=== PATIENT | female | born 1985 | race African-American/Black ===

== ENCOUNTER 2018-08-04 05:59 | Emergency (ER) | payer OTHER ==
[~2018-08-04] VITALS: Ht 167.6 cm; Wt 63.0 kg
[2018-08-04] MEDS ORDERED: CEPHALEXIN500 MG ORAL (06:55)
[2018-08-04] MEDS ORDERED: IBUPROFEN600 MG ORAL (06:55)
[2018-08-04 07:01] VITALS: BP 112/71
[2018-08-04 07:16] VITALS: BP 124/64
--- NOTE | 2018-08-04 07:50 | Emergency Room Report ---
History of Present Illness General Chief Complaint: Pain Source: Patient Present Illness HPI Patient's a 32-year-old female who presented after increased right-sided breast pain. Patient reports having onset of symptoms 5 days ago. Patient reports having the currently been on her menses. She reports being a marijuana smoker. She denies any . She states she has prior history of fibroid uterus. She's not currently taking any medications for hormones. She had no prior history of mammography abnormality. The patient denies any fever or recent trauma. Allergies: Coded Allergies: No Known Allergies (Unverified , 08/04/18) Patient History Past Medical History: see triage record Last Menstrual Period: ongoing Now: No Reviewed Nursing Documentation: PMH: Agreed; PSxH: Agreed Nursing Documentation-PMH Past Medical History: No Stated History Hx Neurological Problems: Yes - fibroid Review of Systems All Other Systems: negative except mentioned in HPI Physical Exam Vital Signs Date Time Temp Pulse Resp B/P (MAP) Pulse Ox O2 Delivery O2 Flow Rate FiO2 08/04/18 06:12 98.2 80 16 110/72 95 Room Air General Appearance: well appearing, no apparent distress, alert, GCS 15 Head: normocephalic, atraumatic ENT: hearing grossly normal, normal voice Neck: full range of motion, supple Respiratory: no respiratory distress, speaking full sentences Musculoskeletal: no calf tenderness Neurologic: normal gait Psychiatric: mood/affect normal Skin: no rash, other - right breast tenderness to nipple without discharge or kristina abscess Medical Decision Making Diagnostic Impression: Primary Impression: Breast tenderness in female ER Course Patient 32-year-old female presented for breast pain. Differential diagnosis included was not limited to mastitis, breast cyst, breast cancer, abscess among others. Patient has a benign exam and does not appear to require any imaging or laboratory testing at this time. The patient appears to have some nipple tenderness there is no evidence of abscess at this time. The patient was given prescription for Keflex however patient was advised to have mammography as well as breast ultrasound to evaluate for possible carcinoma The patient is advised follow-up with her primary care physician for further evaluation and treatment. Labs Test 08/04/18 06:30 Urine HCG, Qualitative Negative (NEGATIVE) Last Vital Signs Date Time Temp Pulse Resp B/P (MAP) Pulse Ox O2 Delivery O2 Flow Rate FiO2 08/04/18 07:16 98.0 86 18 124/64 96 Room Air Status: improved Disposition: HOME, SELF-CARE Condition: Stable Scripts Ibuprofen* (MOTRIN*) 600 Mg Tablet 600 MG ORAL Q8H PRN for For Pain, #30 TAB 0 Refills Prov: Venkatesh Dos Santos MD 08/04/18 Cephalexin* (KEFLEX*) 500 Mg Capsule 500 MG ORAL EVERY 6 HOURS, #28 CAP Prov: Venkatesh Dos Santos MD 08/04/18 Patient Instructions: Breast Tenderness Venkatesh Dos Santos MD Aug 04, 2018 07:50
== END 2018-08-04 07:22 | disposition home or self-care (01) ==
LOC: EMR 06:43
DX: N64.4 Mastodynia (principal); F12.90 Cannabis use, unspecified, uncomplicated
CPT/HCPCS: 81025; 99283

== ENCOUNTER 2018-10-01 10:26 | Emergency (ER) | payer OTHER ==
[~2018-10-01] VITALS: Ht 167.6 cm; Wt 69.4 kg
[~2018-10-01 10:26] MED LIST: CEPHALEXIN500 MG ORAL; IBUPROFEN600 MG ORAL
[2018-10-01] MEDS ORDERED: ELIQUIS5 MG PO (10:40)
--- NOTE | 2018-10-01 10:40 | NUR ---
ED Nurse Note: PT CAME TO ED FROM HOME C/O OF CHEST PAIN PER PT "ITS BAREABLE BUT ITS 02/25". PER PT SHE IS TAKING ELIQUIS. PER PT PAIN STARTED 2 DAYS AGO. PT IS AOX 4 . WILL CONTINUE TO MONITOR AND AWAIT NEW ORDERS
[2018-10-01] MEDS ORDERED: Sodium Chloride 500ML 500 ML IV ONE (10:50)
[2018-10-01] MEDS ORDERED: Isovue-370 150ml vial INJ PRN (11:00)
--- NOTE | 2018-10-01 11:00 | NUR ---
ED Nurse Note: ULTRASOUND AT BEDSIDE
[2018-10-01 11:06] VITALS: BP 104/61
--- NOTE | 2018-10-01 11:38 | Emergency Room Report ---
History of Present Illness General Chief Complaint: Chest Pain Source: Patient Present Illness HPI 32-year-old female presents ED for evaluation. Patient complaining of chest pain 2 days. Midsternal, sharp, 6 out of 10, nonradiating. Notes some shortness of breath. States that she was discharged from [facility] on 09/17 with diagnoses of PE. Patient is on Eliquis. States that she is compliant with her medication. Denies any leg swelling. Denies cough. Denies fevers or chills. Denies drug use. No other aggravating relieving factors. Denies any other associated symptoms Allergies: Coded Allergies: No Known Allergies (Unverified , 10/01/18) Patient History Past Medical History: other - PE/DVT Past Surgical History: none Pertinent Family History: none Social History: Denies: smoking, alcohol use, drug use Last Menstrual Period: Sep 2018 Now: No Immunizations: UTD Reviewed Nursing Documentation: PMH: Agreed; PSxH: Agreed Nursing Documentation-PMH Past Medical History: No History, Except For Hx Neurological Problems: Yes - fibroid Review of Systems All Other Systems: negative except mentioned in HPI Physical Exam Vital Signs Date Time Temp Pulse Resp B/P (MAP) Pulse Ox O2 Delivery O2 Flow Rate FiO2 10/01/18 10:34 98.2 83 16 104/61 98 Room Air Sp02 EP Interpretation: reviewed, normal General Appearance: no apparent distress, alert, GCS 15, non-toxic Head: normocephalic, atraumatic Eyes: bilateral eye normal inspection, bilateral eye PERRL ENT: hearing grossly normal, normal pharynx, no angioedema, normal voice Neck: full range of motion, supple/symm/no masses Respiratory: chest non-tender, lungs clear, normal breath sounds, speaking full sentences Cardiovascular #1: regular rate, rhythm, no edema Cardiovascular #2: 2+ carotid (R), 2+ carotid (L), 2+ radial (R), 2+ radial (L) , 2+ dorsalis pedis (R), 2+ dorsalis pedis (L) Gastrointestinal: normal bowel sounds, non tender, soft, non-distended, no guarding, no rebound Rectal: deferred Genitourinary: normal inspection, no CVA tenderness Musculoskeletal: back normal, gait/station normal, normal range of motion, non- tender Neurologic: alert, oriented x3, responsive, motor strength/tone normal, sensory intact, speech normal Psychiatric: judgement/insight normal, memory normal, mood/affect normal, no suicidal/homicidal ideation Reflexes: 3+ bicep (R), 3+ bicep (L), 3+ tricep (R), 3+ tricep (L), 3+ knee (R) , 3+ knee (L) Skin: normal color, no rash, warm/dry, well hydrated Lymphatic: no adenopathy Medical Decision Making Diagnostic Impression: Primary Impression: DVT (deep venous thrombosis) Qualified Codes: I82.403 - Acute embolism and thrombosis of unspecified deep veins of lower extremity, bilateral Additional Impression: Chest pain Qualified Codes: R07.9 - Chest pain, unspecified ER Course Hospital Course 32 yo F presents to ED c/o bilateral leg pain, chest pain. h/o PE and DVT Differential diagnoses include: VA/unstable angina, PE, bronchitis, asthma Clinical course Patient placed on stretcher. on cafeteria monitor. After initial history and physical I ordered labs, EKG, chest x-ray, CTA chest, venous duplex labs reviewed- no leukocytosis, hemoglobin/hematocrit stable, electrolytes ok, troponins negative EKG - NSR, no acute ischemic changes interpreted bym e Chest x-ray- unremarkable venous duplex - bilateral acute DVT Patient had difficult IV access. I placed peripheral EJ line CTA chest - no evidence of PE Concerning because patient developed DVT while on Eliquis. patient maintains compliance Lovenox given. Because of insurance patient will be transferred I. I feel this is a highly complex case requiring extensive working including EKG/Rhythm strip, Xray/CT/US, Blood/urine lab work, repeat exams while in ED, and administration of strong opiates/narcotics for pain control, admission to hospital or close patient follow up. Diagnosis - DVT, chest pain Transferred in serious condition Labs Test 10/01/18 11:50 10/01/18 12:10 Prothrombin Time 11.3 SEC (9.30-11.50) Prothromb Time International Ratio 1.1 (0.9-1.1) Activated Partial Thromboplast Time 21 SEC (23-33) Urine Color Yellow Urine Appearance Clear Urine pH 7 (4.5-8.0) Urine Specific [place] 1.010 (1.005-1.035) Urine Protein Negative (NEGATIVE) Urine Glucose (UA) Negative (NEGATIVE) Urine Ketones Negative (NEGATIVE) Urine Blood Negative (NEGATIVE) Urine Nitrite Negative (NEGATIVE) Urine Bilirubin Negative (NEGATIVE) Urine Urobilinogen 1 MG/DL (0.0-1.0) Urine Leukocyte Esterase 1+ (NEGATIVE) Urine RBC 0-2 /HPF (0 - 2) Urine WBC 0-2 /HPF (0 - 2) Urine Squamous Epithelial Cells Moderate /LPF (NONE/OCC) Urine Bacteria Few /HPF (NONE) Urine HCG, Qualitative Negative (NEGATIVE) Sodium Level 141 MMOL/L (136-145) Potassium Level 4.3 MMOL/L (3.5-5.1) Chloride Level 109 MMOL/L (98-107) Carbon Dioxide Level 25 MMOL/L (21-32) Anion Gap 7 mmol/L (5-15) Blood Urea Nitrogen 9 mg/dL (7-18) Creatinine 0.7 MG/DL (0.55-1.30) Estimat Glomerular Filtration Rate > 60 mL/min (>60) Glucose Level 76 MG/DL (74-106) Calcium Level 8.2 MG/DL (8.5-10.1) Total Bilirubin 0.5 MG/DL (0.2-1.0) Aspartate Amino Transf (AST/SGOT) 31 U/L (15-37) Alanine Aminotransferase (ALT/SGPT) 22 U/L (12-78) Alkaline Phosphatase 60 U/L (46-116) Total Creatine Kinase 387 U/L (26-308) Creatine Kinase MB 0.7 NG/ML (0.0-3.6) Creatine Kinase MB Relative Index 0.1 Troponin I 0.017 ng/mL (0.000-0.056) Pro-B-Type Natriuretic Peptide 8 pg/mL (0-125) Total Protein 7.2 G/DL (6.4-8.2) Albumin 3.3 G/DL (3.4-5.0) Globulin 3.9 g/dL Albumin/Globulin Ratio 0.8 (1.0-2.7) Urine Opiates Screen Negative (NEGATIVE) Urine Barbiturates Screen Negative (NEGATIVE) Phencyclidine (PCP) Screen Negative (NEGATIVE) Urine Amphetamines Screen Negative (NEGATIVE) Urine Benzodiazepines Screen Negative (NEGATIVE) Urine Cocaine Screen Negative (NEGATIVE) Urine Marijuana (THC) Screen Positive (NEGATIVE) White Blood Count 4.9 K/UL (4.8-10.8) Red Blood Count 4.35 M/UL (4.20-5.40) Hemoglobin 12.7 G/DL (12.0-16.0) Hematocrit 38.3 % (37.0-47.0) Mean Corpuscular Volume 88 FL (80-99) Mean Corpuscular Hemoglobin 29.3 PG (27.0-31.0) Mean Corpuscular Hemoglobin Concent 33.3 G/DL (32.0-36.0) Red Cell Distribution Width 12.7 % (11.6-14.8) Platelet Count 359 K/UL (150-450) Mean Platelet Volume 6.7 FL (6.5-10.1) Neutrophils (%) (Auto) 46.0 % (45.0-75.0) Lymphocytes (%) (Auto) 37.8 % (20.0-45.0) Monocytes (%) (Auto) 12.1 % (1.0-10.0) Eosinophils (%) (Auto) 3.4 % (0.0-3.0) Basophils (%) (Auto) 0.8 % (0.0-2.0) EKG Diagnostic Results Rate: normal Rhythm: NSR ST Segments: no acute changes ASA given to the pt in ED: No Rhythm Strip Diag. Results EP Interpretation: yes Rhythm: NSR, no PVC's, no ectopy Chest X-Ray Diagnostic Results Chest X-Ray Diagnostic Results : Chest X-Ray Ordered: Yes # of Views/Limited/Complete: 1 View Indication: Chest Pain EP Interpretation: Yes Interpretation: no consolidation, no effusion, no pneumothorax, no acute cardiopulmonary disease Impression: No acute disease Electronically Signed by: Electronically signed by Isaak Esquivel MD CT/MRI/US Diagnostic Results CT/MRI/US Diagnostic Results #1: Imaging Test Ordered: Venous DUplex Impression bilateral acute DVT CT/MRI/US Diagnostic Results #2: Imaging Test Ordered: CTA chest Impression no evidence of PE Last Vital Signs Date Time Temp Pulse Resp B/P (MAP) Pulse Ox O2 Delivery O2 Flow Rate FiO2 10/01/18 11:06 83 16 Room Air 10/01/18 11:06 98.2 104/61 98 Status: improved Disposition: XFER SHT-TRM HOSP Condition: Serious Referrals: NON PHYSICIAN (PCP) Isaak Esquivel MD Oct 01, 2018 11:38
[2018-10-01 12:04] LABS: APPEARANCE,URINE CLEAR; BILIRUBIN, URINE NEGATIVE (NEGATIVE); GLUCOSE, URINE (UA) NEGATIVE (NEGATIVE); KETONES,URINE NEGATIVE (NEGATIVE); LEUKOCYTE ESTERASE ,URINE 1+ (NEGATIVE); NITRITE,URINE NEGATIVE (NEGATIVE); PH,URINE 7 (4.5-8.0); PROTEIN,URINE NEGATIVE (NEGATIVE); UROBILINOGEN,URINE 1 MG/DL (0.0-1.0)
[2018-10-01 12:08] LABS: COLOR,URINE YELLOW
[2018-10-01 12:15] LABS: ANION GAP 7 mmol/L (5-15); BLOOD UREA NITROGEN 9 mg/dL (7-18); CALCIUM 8.2 MG/DL (8.5-10.1); CARBON DIOXIDE 25 MMOL/L (21-32); CHLORIDE 109 MMOL/L (98-107); CREATININE 0.7 MG/DL (0.55-1.30); POTASSIUM 4.3 MMOL/L (3.5-5.1); SODIUM 141 MMOL/L (136-145)
[2018-10-01 12:19] LABS: INR 1.1 (0.9-1.1)
[2018-10-01 12:27] LABS: BASOPHILS % (AUTO) 0.8 % (0.0-2.0); EOSINOPHILS % (AUTO) 3.4 % (0.0-3.0); HEMATOCRIT 38.3 % (37.0-47.0); HEMOGLOBIN 12.7 G/DL (12.0-16.0); LYMPHOCYTES % (AUTO) 37.8 % (20.0-45.0); MEAN CORPUSCULAR VOLUME 88 FL (80-99); MONOCYTES % (AUTO) 12.1 % (1.0-10.0); PLATELET COUNT 359 K/UL (150-450); RED BLOOD COUNT 4.35 M/UL (4.20-5.40); RED CELL DISTRIBUTION WIDTH 12.7 % (11.6-14.8); WHITE BLOOD COUNT 4.9 K/UL (4.8-10.8)
[2018-10-01 12:29] LABS: ALBUMIN 3.3 G/DL (3.4-5.0); ALBUMIN/GLOBULIN RATIO 0.8 (1.0-2.7); ALKALINE PHOSPHATASE 60 U/L (46-116); ASPARTATE AMINO TRANSFERASE 31 U/L (15-37); BILIRUBIN,TOTAL 0.5 MG/DL (0.2-1.0); CKMB 0.7 NG/ML (0.0-3.6); CREATINE KINASE 387 U/L (26-308)
[2018-10-01 12:42] LABS: ALANINE AMINOTRANSFERASE 22 U/L (12-78)
--- NOTE | 2018-10-01 12:54 | Diagnostic Imaging Report ---
Indication: Dyspnea Comparison: None A single view chest radiograph was obtained. Findings: Cardiomediastinal appearance is within normal limits for age. The lungs are clear. Pulmonary vascularity is appropriate. The diaphragmatic contour is smooth and costophrenic angles are sharp. No pleural effusions are identified. The bones are unremarkable. Impression: No acute findings
--- NOTE | 2018-10-01 12:57 | Diagnostic Imaging Report ---
Indication:Leg pain and swelling Technique: Grayscale and duplex Doppler imaging of the veins in both lower extremities performed in real time utilizing compression and augmentation. Comparison: None Findings: Duplex Doppler interrogation of the veins in both lower extremity is performed from the common femoral vein to the popliteal vein. Examination shows evidence of bilateral DVT worse on the left leg. There is left superficial femoral to popliteal vein thrombosis. On the right side there is thrombosis of the popliteal vein. Relative lack of respiratory phasicity noted throughout the patent veins in the left leg. Poor augmentation demonstrated. IMPRESSION: Bilateral acute DVT
--- NOTE | 2018-10-01 13:02 | NUR ---
ED Nurse Note: pt tolerates right ext. jug. iv site insertion by dr rojas and pt to ct scan
[2018-10-01] MEDS ORDERED: Enoxaparin 80mg Inj SUBQ ONE (13:15)
--- NOTE | 2018-10-01 13:46 | Diagnostic Imaging Report ---
Indication: Chest pain Technique: Continuous helical transaxial imaging of the chest was obtained from the thoracic inlet to the upper abdomen during rapid intravenous contrast administration. Arterial phase of enhancement obtained. Coronal 2-D reformats were also obtained and maximum intensity projection images in multiple planes. Study obtained in a Siemens sensation [address] Automatic Exposure Control was utilized. Total Dose length Product (DLP): 692.[address] Dose Index Volume (CTDIvol): 17.23,16.03 mGy Comparison: None Findings: The pulmonary artery is well opacified and shows no filling defects. There is no adenopathy, pleural or pericardial effusions are identified. There is no aortic dissection or aneurysm identified within the chest. The lungs are clear. Visualized part of the upper abdomen is unremarkable. Impression: Negative CTA of the chest. Note the posterior basilar most aspects of the lung bases are not included in the [id number] on this examination. The CT scanner at [facility] is accredited by the [employer] and the scans are performed using dose optimization techniques as appropriate to a performed exam including Automatic Exposure control.
[2018-10-01 14:28] VITALS: BP 101/65
--- NOTE | 2018-10-01 14:28 | NUR ---
ED Nurse Note: PT WAS TRANSFERRED TO [facility]. REPORT GIVEN TO SARAH SAPP RECEIVING NURSE AND SWAPNIL WELCH, EMT. PT VSS AT THE MOMENT, AOX 4, PT HAS NO SIGN OF DISTRESS. ALL BELONGINGS GIVEN TO .
--- NOTE | 2018-10-02 17:20 | Cardiology Report ---
APPROVED REPORT EKG Measurement Heart [id number] Normal sinus rhythm Normal ECG
== END 2018-10-01 14:28 | disposition short-term general hospital (02) ==
LOC: EMR 10:59
DX: I82.403 Acute embolism and thrombosis of unspecified deep veins of lower extremity, bilateral (principal); Z86.711 Personal history of pulmonary embolism
CPT/HCPCS: 36415; 71045; 71275; 80053; 80307; 81003; 81025; 82550; 82553; 83880; 84484; 85025; 85610; 85730; 93005; 93970; 96372; 99285; J1650; Q9967

== ENCOUNTER 2019-09-09 05:27 | Emergency (ER) | payer OTHER ==
[~2019-09-09] VITALS: Ht 167.6 cm; Wt 67.6 kg
[~2019-09-09 05:27] MED LIST changes: +ELIQUIS5 MG PO
--- NOTE | 2019-09-09 05:52 | NUR ---
ED Nurse Note: Pt amblated to ED from home c/o vaginal bleeding post coitus, denies pain. Pt states she is 5 weeks , hx of fibroids and blood clots in legs. VSS. Pt is A&Ox4
[2019-09-09 05:54] VITALS: BP 115/72
--- NOTE | 2019-09-09 05:56 | Emergency Room Report ---
History of Present Illness General Chief Complaint: Female Urogenital Problems Source: Patient Present Illness HPI This is a 33-year-old female who is 4 para 2 A1 and approximately 5 weeks by date. She presents with chief complaint of vaginal spotting. This occurred tonight after intercourse. No pain. She does have a history of DVT and pulmonary embolism. She is taking Eliquis. No fever chills. No nausea no vomiting. Nothing made it better. Not made it worse. No other complaint. Allergies: Coded Allergies: No Known Allergies (Unverified , 10/01/18) Patient History Past Medical History: see triage record, old chart reviewed Past Surgical History: other Pertinent Family History: none Social History: Denies: smoking Now: Yes Immunizations: other Reviewed Nursing Documentation: PMH: Agreed; PSxH: Agreed Nursing Documentation-PMH Past Medical History: No History, Except For Hx Neurological Problems: Yes - fibroid Review of Systems Eye: Denies: eye pain, blurred vision ENT: Denies: ear pain, nose congestion, throat swelling Respiratory: Denies: cough, shortness of breath Cardiovascular: Denies: chest pain, palpitations Gastrointestinal: Denies: abdominal pain, diarrhea, nausea, vomiting Genitourinary: Reports: vag bleed/dc Musculoskeletal: Denies: back pain, joint pain Skin: Denies: rash Neurological: Denies: headache, numbness Endocrine: Denies: increased thirst, increased urine Hematologic/Lymphatic: Denies: easy bruising All Other Systems: negative except mentioned in HPI Physical Exam Vital Signs Date Time Temp Pulse Resp B/P (MAP) Pulse Ox O2 Delivery O2 Flow Rate FiO2 09/09/19 05:44 98.4 93 14 115/72 (86) 99 Room Air Vitals normal Sp02 EP Interpretation: reviewed, normal General Appearance: well appearing, no apparent distress, alert Head: normocephalic, atraumatic Eyes: bilateral eye PERRL, bilateral eye EOMI ENT: hearing grossly normal, normal pharynx Neck: full range of motion, supple, no meningismus Respiratory: chest non-tender, lungs clear, normal breath sounds Cardiovascular #1: regular rate, rhythm, no murmur Gastrointestinal: normal bowel sounds, non tender, no mass, no organomegaly, no bruit, non-distended Musculoskeletal: back normal, normal range of motion, gait/station normal Psychiatric: mood/affect normal Medical Decision Making Diagnostic Impression: Primary Impression: Threatened in first trimester Additional Impression: UTI (urinary tract infection) Qualified Codes: N30.00 - Acute cystitis without hematuria ER Course Patient presents with vaginal bleeding in first trimester. There is most likely an early threatened miscarriage. Will get ultrasound to rule out ectopic. I will sign this patient out to Dr. Esquivel for final disposition. CT/MRI/US Diagnostic Results CT/MRI/US Diagnostic Results : Imaging Test Ordered: Pelvic ultrasound Impression Read by radiologist. Tiny gestational sac. Cannot rule out ectopic. Last Vital Signs Date Time Temp Pulse Resp B/P (MAP) Pulse Ox O2 Delivery O2 Flow Rate FiO2 09/09/19 05:44 98.4 93 14 115/72 (86) 99 Room Air Status: improved Disposition: HOME, SELF-CARE Condition: Stable Scripts Cephalexin* (KEFLEX*) 500 Mg Capsule 500 MG ORAL EVERY 6 HOURS for 7 Days, #28 CAP Prov: Isaak Esquivel MD 09/09/19 Patient Instructions: Urinary Tract Infection Tay Florez MD Sep 09, 2019 05:56
[2019-09-09 06:19] LABS: BILIRUBIN, URINE NEGATIVE (NEGATIVE); GLUCOSE, URINE (UA) NEGATIVE (NEGATIVE); KETONES,URINE 1+ (NEGATIVE); LEUKOCYTE ESTERASE ,URINE 1+ (NEGATIVE); NITRITE,URINE NEGATIVE (NEGATIVE); PH,URINE 5 (4.5-8.0); PROTEIN,URINE 3+ (NEGATIVE); UROBILINOGEN,URINE 1 MG/DL (0.0-1.0)
[2019-09-09 06:23] LABS: APPEARANCE,URINE SLIGHTLY CLOUDY; COLOR,URINE YELLOW
[2019-09-09] MEDS ORDERED: cefTRIAXone 1 GM in NS 55 ML IVPB ONE (06:30)
[2019-09-09 06:40] LABS: EOSINOPHILS % (AUTO) 1.1 % (0.0-3.0); HEMATOCRIT 39.9 % (37.0-47.0); HEMOGLOBIN 12.6 G/DL (12.0-16.0); LYMPHOCYTES % (AUTO) 22.9 % (20.0-45.0); MEAN CORPUSCULAR VOLUME 81 FL (80-99); MONOCYTES % (AUTO) 9.6 % (1.0-10.0); NEUTROPHILS % (AUTO) 65.3 % (45.0-75.0); PLATELET COUNT 367 K/UL (150-450); RED BLOOD COUNT 4.93 M/UL (4.20-5.40); RED CELL DISTRIBUTION WIDTH 15.8 % (11.6-14.8)
[2019-09-09 07:01] LABS: ANION GAP 10 mmol/L (5-15); BLOOD UREA NITROGEN 9 mg/dL (7-18); CALCIUM 9.5 MG/DL (8.5-10.1); CARBON DIOXIDE 26 MMOL/L (21-32); CHLORIDE 102 MMOL/L (98-107); CREATININE 0.8 MG/DL (0.55-1.30); POTASSIUM 3.8 MMOL/L (3.5-5.1); SODIUM 138 MMOL/L (136-145)
--- NOTE | 2019-09-09 07:05 | NUR ---
HAND-OFF: Report given to benito MALIK.
[2019-09-09] MEDS ORDERED: CEPHALEXIN500 MG ORAL (07:31)
--- NOTE | 2019-09-09 07:40 | NUR ---
ER DISCHARGE NOTE: Patient is cleared to be discharged per ERMD, pt is aox4, on room air, with stable vital signs. pt was given dc and prescription instructions, pt was able to verbalize understanding, pt id band and iv site removed without complications. pt is able to ambulate with steady gait. pt took all belongings.
[2019-09-09 07:43] VITALS: BP 115/72
--- NOTE | 2019-09-09 12:02 | Diagnostic Imaging Report ---
Indication: . Pelvic pain Technique: Grayscale and duplex Doppler imaging of the pelvis performed utilizing a transabdominal scan and endovaginal scan. Comparison: None Findings: Examination shows a small cystic structure in the central part of the uterus. These structures too small to date and could be an early intrauterine . However other possibilities including a pseudogestational sac are not excluded. The structure measures approximately 8.9 mm. There are multiple uterine fibroids of varying sizes the largest of which is about 4 cm in the fundus. The ovaries appear normal. Right ovary is 2.4 x 1.8 x 1.6 cm. Left ovary 4.3 x 4.4 x 3.1 cm. IMPRESSION: Tiny gestational sac versus nonpregnancy related cystic structure in the central uterus. Follow-up and correlation with serial quantitative beta hCG recommended. Ectopic is not excluded.
== END 2019-09-09 07:45 | disposition home or self-care (01) ==
LOC: EMR 05:37
DX: O20.0 Threatened abortion (principal); Z3A.01 Less than 8 weeks gestation of pregnancy; N30.00 Acute cystitis without hematuria; O23.41 Unspecified infection of urinary tract in pregnancy, first trimester; Z86.711 Personal history of pulmonary embolism; Z86.718 Personal history of other venous thrombosis and embolism
CPT/HCPCS: 36415; 76815; 80048; 81001; 84702; 85025; 86850; 86900; 86901; 87086; 96365; J0696; Z7502; 99284

== ENCOUNTER 2019-11-24 22:40 | Emergency (ER) | payer OTHER ==
[~2019-11-24] VITALS: Ht 167.6 cm; Wt 69.9 kg
--- NOTE | 2019-11-24 22:54 | NUR ---
ED Nurse Note: pt ambulated into ed from home CO constant lower abdominal pain since yesterday that is similar to contractions. Pt states this is her 4th and previous resulted in early . Pt denies any bleeding or spotting, fever, n/v/d. Pt states that she is 4 mo . VSS, pt restless, aao x 4, steady gait. Awaiting ERMD at bedside
--- NOTE | 2019-11-24 23:05 | NUR ---
ED Nurse Note: ERMD at bedside for inital exam and US
[2019-11-24] MEDS ORDERED: HYDROcodone/Acetamin 5/325 tab ORAL ONE (23:15)
--- NOTE | 2019-11-24 23:15 | Emergency Room Report ---
History of Present Illness General Chief Complaint: Complications Source: Patient Present Illness HPI This a 33-year-old female who is 4, para 2, A1. She is approximately 16 weeks . She is a high risk because she has a history of DVT and currently taking Lovenox. She presents with chief complaint of abdominal pain. Onset yesterday. Pain is to the suprapubic and left lower quadrant area. Pain is sharp in nature. No bleeding. She saw her UNDERWRITING SUPPORT SPECIALIST weekly for this high risk . She is B+ blood type. She also had 2 large fibroids. One is at the fundus and the other one is the left lower quadrant. Pain is sharp. 8 out of 10. Worse with palpation and movement. Better with rest. No urinary complaint. No vaginal bleeding. Allergies: Coded Allergies: No Known Allergies (Unverified , 10/01/18) Patient History Past Medical History: see triage record, old chart reviewed Past Surgical History: other Pertinent Family History: none Social History: Denies: smoking Now: Yes : 4 Para: 2 Immunizations: other Reviewed Nursing Documentation: PMH: Agreed; PSxH: Agreed Nursing Documentation-PMH Hx Neurological Problems: Yes - fibroid Review of Systems Eye: Denies: eye pain, blurred vision ENT: Denies: ear pain, nose congestion, throat swelling Respiratory: Denies: cough, shortness of breath Cardiovascular: Denies: chest pain, palpitations Gastrointestinal: Denies: abdominal pain, diarrhea, nausea, vomiting Musculoskeletal: Denies: back pain, joint pain Skin: Denies: rash Neurological: Denies: headache, numbness Endocrine: Denies: increased thirst, increased urine Hematologic/Lymphatic: Denies: easy bruising All Other Systems: negative except mentioned in HPI Physical Exam Vital Signs Date Time Temp Pulse Resp B/P (MAP) Pulse Ox O2 Delivery O2 Flow Rate FiO2 11/24/19 22:44 97.9 98 18 108/75 (86) 98 Room Air Vitals normal Sp02 EP Interpretation: reviewed, normal General Appearance: well appearing, no apparent distress, alert Head: normocephalic, atraumatic Eyes: bilateral eye PERRL, bilateral eye EOMI ENT: hearing grossly normal, normal pharynx Neck: full range of motion, supple, no meningismus Respiratory: chest non-tender, lungs clear, normal breath sounds Cardiovascular #1: regular rate, rhythm, no murmur Gastrointestinal: normal bowel sounds, no mass, no organomegaly, no bruit, non- distended, tenderness - Tenderness to the left lower quadrant. Patient is gravid with fundus at umbilicus. Musculoskeletal: back normal, normal range of motion, gait/station normal Psychiatric: mood/affect normal Medical Decision Making Diagnostic Impression: Primary Impression: UTI (urinary tract infection) Qualified Codes: N30.00 - Acute cystitis without hematuria Additional Impression: Abdominal pain in Qualified Codes: O26.892 - Other specified related conditions, second trimester; R10.9 - Unspecified abdominal pain ER Course This patient presents with abdominal pain in . This is probably secondary to a fibroid enlarging and may be causing round ligament pain or pressure. She may be worsened by a mild urinary tract infection. She see her when weekly. She has an appointment in 3 days. My bedside ultrasound showed a live IUP with good heartbeat and movement. She also has a very large fibroid at the fundus causing her to be at 20 weeks instead of 16. She already had blood work done and is Rh+. I see no need for repeat type and Rh here. Last Vital Signs Date Time Temp Pulse Resp B/P (MAP) Pulse Ox O2 Delivery O2 Flow Rate FiO2 11/24/19 22:44 97.9 98 18 108/75 (86) 98 Room Air Status: improved Disposition: HOME, SELF-CARE Condition: Stable Scripts Hydrocodone Bit/Acetaminophen 5-325* (NORCO 5-325*) 1 Each Tablet 1 TAB ORAL Q6H PRN for For Pain, #20 TAB 0 Refills Prov: Tay Florez MD 11/24/19 Nitrofurantoin Monohyd/M-Cryst (Nitrofurantoin Yancey-Mcr 100 mg) 100 Mg Capsule 100 MG ORAL Q12H, #14 CAP Prov: Tay Florez MD 11/24/19 Additional Instructions: Follow-up with your UNDERWRITING SUPPORT SPECIALIST as scheduled. Return if symptoms worsen. Tay Florez MD Nov 24, 2019 23:15
--- NOTE | 2019-11-24 23:20 | NUR ---
ED Nurse Note: All medications administered; pt tolerated well, no s/s of distress noted; no adverse reactions noted.
--- NOTE | 2019-11-24 23:40 | NUR ---
ED Nurse Note: Pt states that her pain is improving from 10/10 to 7/10. Pt no longer restless and grimacing. VSS.
[2019-11-24 23:46] LABS: APPEARANCE,URINE SLIGHTLY CLOUDY; BILIRUBIN, URINE NEGATIVE (NEGATIVE); GLUCOSE, URINE (UA) NEGATIVE (NEGATIVE); KETONES,URINE NEGATIVE (NEGATIVE); LEUKOCYTE ESTERASE ,URINE 2+ (NEGATIVE); NITRITE,URINE NEGATIVE (NEGATIVE); PH,URINE 6 (4.5-8.0); PROTEIN,URINE 1+ (NEGATIVE); UROBILINOGEN,URINE 1 MG/DL (0.0-1.0)
[2019-11-24 23:49] LABS: COLOR,URINE YELLOW
[2019-11-24] MEDS ORDERED: MACROBID100 MG ORAL (23:58)
[2019-11-24] MEDS ORDERED: NORCO 5-325 TA1 EACH ORAL (23:58)
[2019-11-25] MEDS ORDERED: Cephalexin 500mg cap ORAL ONE
--- NOTE | 2019-11-25 00:05 | NUR ---
ED Nurse Note: ERMD at bedside
[2019-11-25 00:15] VITALS: BP 108/75
--- NOTE | 2019-11-25 00:15 | NUR ---
ER DISCHARGE NOTE: Patient is cleared to be discharged home per ERMD, pt is aox4, on room air, with stable vital signs. pt was given dc and prescription instructions, pt was able to verbalize understanding, pt id band removed. pt is able to ambulate with steady gait. pt took all belongings.
== END 2019-11-25 00:15 | disposition home or self-care (01) ==
LOC: EMR 23:15
DX: O26.892 Other specified pregnancy related conditions, second trimester (principal); O23.42 Unspecified infection of urinary tract in pregnancy, second trimester; Z3A.20 20 weeks gestation of pregnancy; N30.00 Acute cystitis without hematuria; R10.9 Unspecified abdominal pain; Z86.718 Personal history of other venous thrombosis and embolism
CPT/HCPCS: 81003; Z7502; 99283